=== PATIENT | male | born 1985 ===

== ENCOUNTER 2017-10-31 12:49 | Emergency (ER) | payer BC ==
[2017-10-31 13:08] VITALS: TEMP 98.3
[2017-10-31] MEDS ORDERED: Sodium Chloride 0.9% 1,000 ML IV STA (13:33)
--- NOTE | 2017-10-31 13:33 | ED PDOC ---
HPI: General Adult Time Seen by Provider: 10/31/17 13:21 Chief Complaint (Nursing): Chest Pain Chief Complaint (Provider): Burning chest and abd History Per: Patient History/Exam Limitations: no limitations Onset/Duration Of Symptoms: Days (1am today) Additional Complaint(s): Pt. with burning to chest and abd since 1am. States is constant now. Has had similar when eating spicy stuff in the past. Took gaufenesin with codeine 2x yesterday and then symptoms started. Had a cough and chest congestion so saw pcp who gave this. Currently no cough, dyspnea, fever. No diarrhea, nausea, vomit. No leg pain or long distance travel. No hormone use. No new food. No etoh or drugs. Past Medical History Reviewed: Nursing Documentation, Vital Signs Vital Signs: Last Vital Signs Temp 98.3 F 10/31/17 13:02 Pulse 77 10/31/17 13:16 Resp 14 10/31/17 13:16 BP 179/84 H 10/31/17 13:02 Pulse Ox 98 10/31/17 13:41 - Medical History PMH: No Chronic Diseases - Surgical History Surgical History: No Surg Hx - Family History Family History: States: Unknown Family Hx - Social History Alcohol: None Drugs: Denies - Allergies Allergies/Adverse Reactions: Allergies Allergy/AdvReac Type Severity Reaction Status Date / Time No Known Allergies Allergy Verified 10/31/17 13:08 Review of Systems ROS Statement: Except As Marked, All Systems Reviewed And Found Negative Cardiovascular: Positive for: Chest Pain Gastrointestinal: Positive for: Abdominal Pain Physical Exam - Reviewed Nursing Documentation Reviewed: Yes Vital Signs Reviewed: Yes - Physical Exam Appears: Positive for: Non-toxic, No Acute Distress Head Exam: Positive for: ATRAUMATIC, NORMAL INSPECTION, NORMOCEPHALIC Skin: Positive for: Normal Color, Warm, DRY Eye Exam: Positive for: EOMI, Normal appearance, PERRL ENT: Positive for: Normal ENT Inspection Neck: Positive for: Normal, Painless ROM Cardiovascular/Chest: Positive for: Regular Rate, Rhythm, Chest Non Tender. Negative for: Edema Respiratory: Positive for: CNT, Normal Breath Sounds Gastrointestinal/Abdominal: Positive for: Normal Exam, Soft. Negative for: Tenderness Back: Positive for: Normal Inspection. Negative for: L CVA Tenderness, R CVA Tenderness Extremity: Positive for: Normal ROM. Negative for: Tenderness, Pedal Edema Neurologic/Psych: Positive for: Alert, Oriented - Laboratory Results Result Diagrams: 10/31/17 13:30 10/31/17 13:30 Interpretation Of Abn Labs: no acute - ECG ECG: Positive for: Interpreted By Me, Viewed By Me ECG Rhythm: Positive for: Sinus Rhythm Interpretation Of Abn EKG: incomplete right bundle branch block. O2 Sat by Pulse Oximetry: 98 Pulse Ox Interpretation: Normal - Radiology X-Ray: Read By Radiologist X-Ray Interpretation: No Acute Disease - Progress ED Course And Treament: 1434: Stable. AAOx3. Pain free. Tolerated PO. FU with pcp. Crisis saw pt. Does not meet criteria for admit. Pt. aware of bp elevation as seen in the ER. Fu with pcp. Disposition - Clinical Impression Clinical Impression: Chest pain, Blood pressure elevated without history of HTN - Patient ED Disposition Is Patient to be Admitted: No - Disposition Referrals: Alok Cordon MD [Primary Care Provider] - 11/01/17 Disposition: Routine/Home Disposition Time: 14:43 Condition: STABLE Additional Instructions: Return if not better in 3 days. Instructions: High Blood Pressure in Adults, Chest Pain (DC) Forms: [facility] [facility] (Cuban), [facility] ED School/Work Excuse
[2017-10-31 14:01] LABS: BASO % 0.2 % (0.0-2.0); EOS % 0.4 % (0.0-4.0); HEMOGLOBIN 14.3 g/dL (12.0-18.0); LYMPH # 1.5 K/uL (1.0-4.3); LYMPH % 25.9 % (20.0-40.0); MEAN CELL VOLUME 84.9 fl (80.0-94.0); MEAN CORPUSCULAR HEMOGLOBIN 30.1 pg (27.0-31.0); MEAN CORPUSCULAR HGB CONC 35.5 g/dL (33.0-37.0); MEAN PLATELET VOLUME 8.9 fl (7.2-11.7); MONO # 0.5 K/uL (0.0-0.8); MONO % 8.4 % (0.0-10.0); NEUT # 3.8 K/uL (1.8-7.0); NEUT % 65.1 % (50.0-75.0); NRBC % 0.2 % (0.0-0.0); RBC 4.75 Mil/uL (4.40-5.90); RED CELL DISTRIBUTION WIDTH 12.5 % (11.5-14.5); WHITE BLOOD COUNT 5.9 K/uL (4.8-10.8)
--- NOTE | 2017-10-31 14:12 | RAD ---
Date of service: 10/31/2017 HISTORY: dyspnea COMPARISON: No prior. FINDINGS: LUNGS: No active pulmonary disease. PLEURA: No significant pleural effusion identified, no pneumothorax apparent. CARDIOVASCULAR: Normal. OSSEOUS STRUCTURES: No significant abnormalities. VISUALIZED UPPER ABDOMEN: Normal. OTHER FINDINGS: None. IMPRESSION: No active disease.
[2017-10-31 14:13] LABS: ALB/GLOB RATIO 1.4 (1.0-2.1); ALBUMIN 4.5 g/dL (3.5-5.0); ALT/SGPT 42 U/L (21-72); AST/SGOT 27 U/L (17-59); BLOOD UREA NITROGEN 9 mg/dl (9-20); CALCIUM 9.2 mg/dL (8.4-10.2); GFR NON-AFRICAN AMERICAN > 60; LIPASE 92 U/L (23-300)
[2017-10-31 14:58] VITALS: BP 145/93; PULSE 74; RESP 16; O2SAT 99
--- NOTE | 2017-10-31 18:39 | CARD ---
APPROVED REPORT Date of service: 10/31/2017 EKG Measurement Heart [id number] <Conclusion> Normal sinus rhythm Incomplete right bundle branch block Borderline ECG
== END 2017-10-31 14:50 | disposition home or self-care (01) ==
LOC: H.ER 12:49
DX: R07.89 Other chest pain (principal); I10 Essential (primary) hypertension
CPT/HCPCS: 71045; 80053; 83690; 84484; 85025; 93005; 96361; 96374; 99285; G0480; J7030